=== PATIENT | male | born 1995 | race Two or more races ===

== ENCOUNTER 2019-11-24 15:10 | Emergency (ER) | payer SELFPAY ==
[2019-11-24 15:30] VITALS: BP 130/79; PULSE 63; TEMP 98.2; BMI 28.0
[2019-11-24] MEDS ORDERED: ONDANSETRON 4 MG/2 ML VIAL IVPUSH ONE (16:00)
[2019-11-24] MEDS ORDERED: FAMOTIDINE 20 MG/50 ML IVPB 20 MG/50 ML MG IVPB ONE ×2 (16:00→16:05)
[2019-11-24] MEDS ORDERED: SODIUM CHLORIDE 0.9% 500 ML INFUS.BAG IV ONE (16:01)
[2019-11-24 16:34] LABS: BASO % 0.5 % (0-2.0); EOS % 0.1 % (0-4.5); HEMATOCRIT 52.1 % (35.4-49); HEMOGLOBIN 17.1 GM/dL (11.7-16.9); LYMPH % 7.1 % (8-40); MCH 30.4 pg (25.7-33.7); MCHC 32.8 g/dl (32.0-35.9); MEAN CELL VOLUME 92.6 fl (80-96); MEAN PLT VOLUME 9.1 fl (7.5-11.1); MONO % 6.4 % (3.8-10.2); NEUT % 85.9 % (42.8-82.8); PLATELET COUNT 265 K/MM3 (134-434); RBC 5.63 M/mm3 (4.00-5.60); RDW 12.7 % (11.9-15.9); WHITE BLOOD COUNT 16.2 K/mm3 (4.0-10.0)
--- NOTE | 2019-11-24 16:34 | PDOC ---
History of Present Illness - General Chief Complaint: Nausea/Vomiting Stated Complaint: VOMITING Time Seen by Provider: 11/24/19 15:49 History Source: Patient Exam Limitations: No Limitations - History of Present Illness Initial Comments: 11/24/19 16:29 Patient is a 24-year-old male with no past medical history who presents to the ED with complaint of vomiting many times since 7 or 8 AM. The patient states he vomited so many times he lost count. He is only vomiting clear liquid at this point. He denies any blood in his vomitus. He denies eating anything that could have made him sick yesterday. The patient does admit to smoking marijuana every day for the last 10 years. As per his girlfriend, this is happened to him 1 time in the past, but has not been a consistent problem. He denies any fevers or chills. He denies any recent travel. He denies any sick contacts. Past History - Medical History Allergies/Adverse Reactions: Allergies Allergy/AdvReac Type Severity Reaction Status Date / Time No Known Allergies Allergy Verified 11/24/19 15:31 Home Medications: Ambulatory Orders Ondansetron [Zofran *Odt*] 4 mg SL BID PRN #10 od.tablet 11/24/19 COPD: No - Psycho-Social/Smoking History Smoking History: Current every day smoker Have you smoked in the past 12 months: Yes Information on smoking cessation initiated: Yes - Substance Abuse Hx (Audit-C & DAST Scrn) How often the patient has a drink containing alcohol: Never Score: In Men: 4 or > Positive; In Women: 3 or > Positive: 0 Screen Result (Pos requires Nsg. Audit-10AR): Negative In the last yr the pt used illegal drug/Rx for NonMed reason: No Score: Yes response is considered Positive: 0 Screen Result (Positive result requires Nsg. DAST-10): Negative Review of Systems - Review of Systems Comments:: 11/24/19 16:33 - Review of Systems Able to Perform ROS?: Yes Constitutional: No: Fever, Chills, Loss of Appetite, Night Sweats, Weakness HEENTM: No: Eye Pain, Vision changes, Ear Pain, Throat Pain, Throat Swelling, Mouth Pain, Difficulty Swallowing Respiratory: No: Cough, Shortness of Breath, Wheezing, Sputum Production Cardiac (ROS): No: Chest Pain, Chest Tightness, Palpitations, Irregular Heart Beat, Edema ABD/GI: Positive: nausea, vomiting, epigstric abdominal pain : No Dysuria, No Hematuria, No Frequency, No Urgency Musculoskeletal: No: Muscle Pain, Back Pain, Joint Pain, Muscle Weakness, Neck Pain Integumentary: No: Lesions, Rash Neurological: No: Headache, Numbness, Tingling, Weakness, Speech Difficulties *Physical Exam - Vital Signs Last Vital Signs Temp Pulse Resp BP Pulse Ox 98.2 F 63 18 130/79 99 11/24/19 15:27 11/24/19 15:27 11/24/19 15:27 11/24/19 15:27 11/24/19 15:27 - Physical Exam 11/24/19 16:34 - Physical Exam General Appearance: Nourished, Appropriately Dressed, No Distress HEENT: EOMI, Normal Voice, Hearing Grossly Normal, slightly dry oral mucosa Neck: Supple, No Lymphadenopathy (R), No Lymphadenopathy (L), No Rigidity, No Decreased range of motion Respiratory/Chest: Lungs Clear, Normal Breath Sounds. No Respiratory Distress, No Accessory Muscle Use Cardiovascular: Regular Rhythm, Regular Rate, S1, S2 Gastrointestinal/Abdominal: Normal Bowel Sounds, Soft. Non-tender, No Guarding, No Rebound, No Rigidity; mild epigastric abdominal tenderness palpation. No tympanitic abdomen Musculoskeletal: Normal Inspection. No Decreased Range of Motion Extremity: Normal Capillary Refill, Normal Inspection Integumentary: Normal Color, Dry. No Rash Neurologic: registered phlebotomist part time II-XII NML intact, Fully Oriented, Alert, Normal Mood/Affect, Normal Response ED Treatment Course - LABORATORY CBC & Chemistry Diagram: 11/24/19 16:15 11/24/19 16:15 - Medications Given in the ED: ED Medications Discontinued Medications Generic Name Dose Route Start Last Admin Trade Name Freq PRN Reason Stop Dose Admin Famotidine/Sodium Chloride 20 mg in 50 mls @ 100 mls/hr 11/24/19 16:00 11/24/19 16:20 Pepcid 20 Mg Premixed Ivpb - IVPB 11/24/19 16:29 100 mls/hr ONCE ONE Administration Ondansetron HCl 4 mg 11/24/19 16:00 11/24/19 16:20 Zofran Injection IVPUSH 11/24/19 16:01 4 mg ONCE ONE Administration Sodium Chloride 1,000 ml 11/24/19 16:01 11/24/19 16:20 Normal Saline - IV 11/24/19 16:02 1,000 ml ONCE ONE Administration Medical Decision Making - Medical Decision Making 11/24/19 16:35 Assessment: Patient is a 24-year-old male with vomiting since 7 or 8 AM. Patient smokes marijuana every day for the last 10 years. Plan: -Saline lock and 1 L of NS ordered -Zofran 4 mg IV ordered -Pepcid ordered -CBC and CMP ordered -Will reassess 11/24/19 17:30 Patient feeling a lot better and tolerated water p.o. Will do a pocus ultrasound of the gallbladder for further evaluation secondary to mildly elevated LFTs and bilirubin. 11/24/19 17:59 Pocus ultrasound revealed a normal gallbladder and CBD. The patient will be discharged and has been encouraged to increase fluids, avoid smoking marijuana and follow-up with primary care and GI. Referral was given for both. He has tolerated p.o. fluids in the ED. Zofran ODT was sent to his pharmacy. He understands and agrees with this treatment plan and he is stable for discharge. Discharge - Discharge Information Problems reviewed: Yes Clinical Impression/Diagnosis: N&V (nausea and vomiting), Cyclical vomiting Condition: Stable Disposition: HOME - Additional Discharge Information Prescriptions: Ondansetron [Zofran *Odt*] 4 mg SL BID PRN #10 od.tablet PRN Reason: Nausea - Follow up/Referral Referrals: [facility] [place] [facility] [place] [Provider Group] Shaji Bailey DO [Staff Physician] - - Patient Discharge Instructions Patient Printed Discharge Instructions: DI for Vomiting -- Adult Additional Instructions: Eat a bland diet and drink plenty of fluids. Avoid any marijuana smoking as this could be causing your symptoms. Follow-up with your primary doctor within 1 to 2 days for repeat evaluation. You should have your liver function test repeated as they were mildly elevated in the emergency department today. You have been referred to both a primary care doctor and a GI doctor. You should follow-up with both. - Post Discharge Activity Work/Back to School Note: Back to Work
[2019-11-24 17:06] LABS: ALBUMIN 4.8 g/dl (3.4-5.0); BILIRUBIN,TOTAL 1.4 mg/dL (0.2-1); CALCIUM 10.3 mg/dL (8.5-10.1); POTASSIUM 4.5 mmol/L (3.5-5.1); TOT PROT 8.6 g/dl (6.4-8.2)
--- NOTE | 2019-11-24 17:28 | PDOC ---
*Physical Exam - Vital Signs Last Vital Signs Temp Pulse Resp BP Pulse Ox 98.2 F 63 18 130/79 99 11/24/19 15:27 11/24/19 15:27 11/24/19 15:27 11/24/19 15:27 11/24/19 15:27 - Physical Exam 11/24/19 17:43 abd: soft, nt/nd +bs ED Treatment Course - LABORATORY CBC & Chemistry Diagram: 11/24/19 16:15 11/24/19 16:15 - ADDITIONAL ORDERS Additional order review: Laboratory Results 11/24/19 16:15 Sodium 139 Potassium 4.5 Chloride 102 Carbon Dioxide 33 H Anion Gap 4 L BUN 12.0 Creatinine 1.0 Est GFR (CKD-EPI)AfAm 120.70 Est GFR (CKD-EPI)NonAf 104.14 Random Glucose 93 Calcium 10.3 H Total Bilirubin 1.4 H AST 109 H ALT 83 H Alkaline Phosphatase 109 Total Protein 8.6 H Albumin 4.8 11/24/19 16:15 RBC 5.63 H MCV 92.6 MCHC 32.8 RDW 12.7 MPV 9.1 Neutrophils % 85.9 H Lymphocytes % 7.1 L Monocytes % 6.4 Eosinophils % 0.1 Basophils % 0.5 - Medications Given in the ED: ED Medications Discontinued Medications Generic Name Dose Route Start Last Admin Trade Name Maynorq PRN Reason Stop Dose Admin Famotidine/Sodium Chloride 20 mg in 50 mls @ 100 mls/hr 11/24/19 16:00 11/24/19 16:20 Pepcid 20 Mg Premixed Ivpb - IVPB 11/24/19 16:29 100 mls/hr ONCE ONE Administration Ondansetron HCl 4 mg 11/24/19 16:00 11/24/19 16:20 Zofran Injection IVPUSH 11/24/19 16:01 4 mg ONCE ONE Administration Sodium Chloride 1,000 ml 11/24/19 16:01 11/24/19 16:20 Normal Saline - IV 11/24/19 16:02 1,000 ml ONCE ONE Administration Medical Decision Making - Medical Decision Making 11/24/19 17:43 a/p: 24yo female with upper abd pain earlier with persistent n/v -no bleeding -no ttp at this time -elevated lft -pocus ultrasound neg for stones -suspect dehydration -stable for dc to home and follow up with pmd -discussed BRAT diet and clear liquid diet Discharge - Discharge Information Problems reviewed: Yes Clinical Impression/Diagnosis: N&V (nausea and vomiting) Condition: Stable Disposition: HOME - Admission No - Follow up/Referral - Patient Discharge Instructions - Post Discharge Activity
== END 2019-11-24 18:09 | disposition home or self-care (01) ==
LOC: JER 15:10
PROC: 3E033GC Introduction of Other Therapeutic Substance into Peripheral Vein, Percutaneous Approach (ICD-10-PCS; principal; 2019-11-24)
DX: R11.2 Nausea with vomiting, unspecified (principal)
CPT/HCPCS: 36415; 76705-TC; 80053; 85025; 99284-25